=== PATIENT | female | born 1985 | race Caucasian/White ===

== ENCOUNTER 2020-06-09 12:14 | Outpatient (REF) | payer OTHER, MEDICAID, SELFPAY ==
[2020-06-09 12:45] LABS: MANUAL DIFF FLAG NO
[2020-06-09 13:03] LABS: Basophils Percent Auto 0.4 % (0-2); Eosinophils Absolute Auto 0.2 X10*3/uL (0.0-0.4); Eosinophils Percent Auto 2.4 % (0-4); Hematocrit 41.3 % (37-47); Hemoglobin 13.1 g/dl (12.0-16.0); Imm Gran Abs Auto 0.06 X10*3/uL (0.00-0.03); Imm Gran Pct Auto 0.8 % (0.0-0.4); Lymphocytes Percent Auto 25.3 % (20-40); Mean Corpuscular HGB Conc 31.7 g/dl (31.0-35.0); Mean Corpuscular Hemoglobin 29.1 pg (27.0-33.0); Mean Corpuscular Volume 91.8 fL (80-98); Mean Platelet Volume 10.7 fL (9.4-12.3); Monocytes Absolute Auto 0.6 X10*3/uL (0.1-1.2); Monocytes Percent Auto 7.6 % (2-11); Neutrophils Percent Auto 63.5 % (45-73); Platelet Count 315 X10*3/uL (160-400); Red Cell Distribution Width 13.5 % (11.0-16.0); White Blood Count 7.9 X10*3/uL (4.8-10.8)
[2020-06-09 13:05] LABS: Lithium 0.47 mmol/L (0.60-1.20)
[2020-06-09 13:12] LABS: Alanine Aminotransferase 29 U/L (0-31); Albumin Level 4.2 g/dL (3.5-5.0); Alkaline Phosphatase 77 U/L (39-117); Anion Gap 10 (12-20); Aspartate Amino Transferase 19 U/L (5-31); Bilirubin Direct < 0.2 mg/dL (0.0-0.5); Bilirubin Total 0.3 mg/dL (0.0-1.0); Blood Urea Nitrogen 13 mg/dL (9-16); Calcium 9.4 mg/dL (8.4-10.2); Carbon Dioxide 29 mmol/L (22-29); Chloride 104 mmol/L (96-108); Cholesterol 176 mg/dL; Estimated Glomerular Filt Rate > 60; Glucose Random 89 mg/dL (60-115); HDL Cholesterol 36 mg/dL; LDL Cholesterol Calculated 78 mg/dl; Potassium 4.4 mmol/l (3.3-5.1); Sodium 139 mmol/L (135-145); Total Protein 7.2 g/dL (6.5-8.0); Triglycerides 314 mg/dL
[2020-06-09 13:36] LABS: Thyroid Stimulating Hormone 1.14 uIU/mL (0.32-4.0)
== END 2020-06-09 12:15 | disposition home or self-care (01) ==
LOC: HO.LAB 12:14
PROVIDERS: PCP Internal Medicine; Visit Provider Nurse Practitioner Psychiatric/Mental Health
DX: F33.0 Major depressive disorder, recurrent, mild (principal); F43.10 Post-traumatic stress disorder, unspecified; Z79.899 Other long term (current) drug therapy
CPT/HCPCS: 36415; 80053; 80061; 80076; 80178; 82248; 84443; 85025

== ENCOUNTER 2020-06-27 11:31 | Outpatient (REF) | payer OTHER, MEDICAID, SELFPAY | END 2020-06-27 11:32 | disposition home or self-care (01) | LOC: HO.LAB 11:31 | PROVIDERS: Visit Provider Internal Medicine | DX: Z20.822 Contact with and (suspected) exposure to COVID-19 (principal) | CPT/HCPCS: 36415; C9803; U0003; U0005 ==

== ENCOUNTER → 2020-10-10 10:32 | Outpatient (BNVA) | payer OTHER, MEDICAID, SELFPAY | PROVIDERS: PCP Internal Medicine; Visit Provider Physician Assistant ==

== ENCOUNTER → 2020-11-06 08:11 | Outpatient (BNVA) | payer MEDICAID, SELFPAY | PROVIDERS: PCP Internal Medicine; Visit Provider Physician Assistant ==

== ENCOUNTER 2020-11-14 11:49 | Outpatient (REF) | payer MEDICAID, SELFPAY ==
[2020-11-14 13:34] LABS: MANUAL DIFF FLAG NO
[2020-11-14 13:38] LABS: Basophils Absolute Auto 0.1 X10*3/uL (0.0-0.2); Basophils Percent Auto 0.6 % (0-2); Eosinophils Absolute Auto 0.1 X10*3/uL (0.0-0.4); Eosinophils Percent Auto 1.6 % (0-4); Hematocrit 42.4 % (37-47); Hemoglobin 13.2 g/dl (12.0-16.0); Imm Gran Abs Auto 0.02 X10*3/uL (0.00-0.03); Imm Gran Pct Auto 0.2 % (0.0-0.4); Lymphocytes Absolute Auto 1.5 X10*3/uL (1.2-4.9); Lymphocytes Percent Auto 17.6 % (20-40); Mean Corpuscular HGB Conc 31.1 g/dl (31.0-35.0); Mean Corpuscular Hemoglobin 28.5 pg (27.0-33.0); Mean Corpuscular Volume 91.6 fL (80-98); Mean Platelet Volume 12.2 fL (9.4-12.3); Monocytes Absolute Auto 0.7 X10*3/uL (0.1-1.2); Monocytes Percent Auto 7.6 % (2-11); Neutrophils Absolute Auto 6.2 X10*3/uL (2.0-8.3); Neutrophils Percent Auto 72.4 % (45-73); Platelet Count 284 X10*3/uL (160-400); Red Blood Count 4.63 X10*6/uL (4.20-5.50); Red Cell Distribution Width 13.5 % (11.0-16.0); White Blood Count 8.5 X10*3/uL (4.8-10.8)
[2020-11-14 13:53] LABS: Estimated Average Glucose 97 mg/dL
[2020-11-14 14:08] LABS: Alanine Aminotransferase 14 U/L (0-31); Albumin Level 4.5 g/dL (3.5-5.0); Alkaline Phosphatase 59 U/L (39-117); Aspartate Amino Transferase 14 U/L (5-31); Bilirubin Total 0.4 mg/dL (0.0-1.0); Blood Urea Nitrogen 14 mg/dL (9-16); C Reactive Protein 0.71 mg/dL (< or = 0.50); Cholesterol 127 mg/dL; Estimated Glomerular Filt Rate > 60; Glucose Random 92 mg/dL (60-115); HDL Cholesterol 40 mg/dL; Iron 61 mcg/dL (30-160); LDL Cholesterol Calculated 58 mg/dl; Percent Iron Saturation 17 % (15-50); Total Iron Binding Capacity 367 mcg/dL (228-428); Total Protein 7.1 g/dL (6.5-8.0); Triglycerides 148 mg/dL; Unsaturated Iron Binding 306 ug/dL
[2020-11-14 14:21] LABS: Anion Gap 13 (12-20); Carbon Dioxide 26 mmol/L (22-29); Chloride 106 mmol/L (96-108); Potassium 4.2 mmol/L (3.3-5.1); Sodium 141 mmol/L (135-145)
[2020-11-14 14:31] LABS: TSH reflex Free T4 0.65 uIU/mL (0.32-4.0); Vitamin D 25-OH Total 44.8 ng/mL (>30)
[2020-11-14 14:38] LABS: Folate 5.8 ng/mL (> or = 4.0); Vitamin B12 354 pg/mL (200-900)
[2020-11-14 15:02] LABS: Ferritin 10 ng/mL (10-122)
[2020-11-17 18:46] LABS: Insulin Level Total 5.6 uIU/mL
[2020-11-18 03:12] LABS: Zinc 65 mcg/dL (60-130)
[2020-11-18 08:53] LABS: PTHI 60 pg/mL (14-64)
[2020-11-19 14:02] LABS: Vitamin A 35 mcg/dL (38-98)
[2020-11-20 12:26] LABS: Vitamin B1 6 nmol/L (8-30)
== END 2020-11-14 11:50 | disposition home or self-care (01) ==
LOC: HO.LAB 11:49
PROVIDERS: PCP Internal Medicine; Visit Provider Physician Assistant
DX: E66.9 Obesity, unspecified (principal)
CPT/HCPCS: 36415; 80053; 80061; 82306; 82607; 82728; 82746; 83036; 83525; 83540; 83970; 84425; 84443; 84590; 84630; 85025; 86140

== ENCOUNTER → 2021-01-12 08:01 | Outpatient (BNVA) | payer MEDICAID, SELFPAY | PROVIDERS: PCP Internal Medicine; Visit Provider Dietitian, Registered | DX: E66.9 Obesity, unspecified (principal) | CPT/HCPCS: 97802 ==

== ENCOUNTER → 2021-02-23 13:48 | Outpatient (BNVA) | payer MEDICAID, SELFPAY | PROVIDERS: PCP Internal Medicine; Visit Provider Physician Assistant | DX: E66.3 Overweight (principal) | CPT/HCPCS: 99212 ==

== ENCOUNTER → 2021-04-20 12:56 | Outpatient (BNVA) | payer MEDICAID, SELFPAY | PROVIDERS: PCP Internal Medicine; Visit Provider Physician Assistant | DX: E66.3 Overweight (principal); Z68.27 Body mass index [BMI] 27.0-27.9, adult | CPT/HCPCS: 99212 ==

== ENCOUNTER 2021-05-11 12:17 | Outpatient (REF) | payer MEDICAID, SELFPAY ==
[2021-05-11 16:11] LABS: COVID-19 Test Negative (Negative)
== END 2021-05-11 12:18 | disposition home or self-care (01) ==
LOC: HO.LAB 12:17
PROVIDERS: Visit Provider Internal Medicine
DX: Z20.822 Contact with and (suspected) exposure to COVID-19 (principal)
CPT/HCPCS: 36415; 87635; C9803

== ENCOUNTER → 2021-05-29 11:06 | Outpatient (BNVA) | payer MEDICAID, SELFPAY | PROVIDERS: PCP Internal Medicine; Visit Provider Physician Assistant | DX: E66.3 Overweight (principal); F31.9 Bipolar disorder, unspecified | CPT/HCPCS: 99212 ==

== ENCOUNTER → 2021-08-11 08:12 | Outpatient (BNVA) | payer OTHER, MEDICAID, SELFPAY | PROVIDERS: PCP Internal Medicine; Visit Provider Physician Assistant | DX: Z13.89 Encounter for screening for other disorder (principal) ==

== ENCOUNTER → 2021-09-01 08:18 | Outpatient (BNVA) | payer MEDICAID, SELFPAY | PROVIDERS: PCP Internal Medicine; Visit Provider Dietitian, Registered | DX: E66.3 Overweight (principal); Z68.27 Body mass index [BMI] 27.0-27.9, adult | CPT/HCPCS: 97803 ==

== ENCOUNTER 2021-09-07 08:45 | Outpatient (RCR) | payer OTHER, SELFPAY ==
[2021-08-12 13:11] VITALS: BMI 27.4
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
--- NOTE | 2021-08-13 15:46 | PC.NURSE ---
Case opened in treatment team.
--- NOTE | 2021-08-17 11:16 | HO.PHPPROGNO ---
Subjective Subjective Date of Service: 08/17/21 Reason For Visit: bipolar Guardianship: No Medical Problems Affecting Mental Status: No Interim History: Describes mood as I'm okay . Says continues with depressed mood, but feels the depression has lessened when compared to last week. Continues with vegetative symptoms, such as lack of ADLs, poor appetite, poor sleep. No reports of SI/HI, no safety concern. Content with current medication regimen. Medication Compliance: Yes Side effects from medications: No Attending Groups: Yes Review of Systems Acute medical concerns: No Medical Review of Systems: unchanged Review of Systems Review of Systems Yes all other systems are reviewed and are negative Constitutional: Reports no additional constitutional complaints Mental Status Exam Mental Status Exam Narrative: Well developed, well-nourished female, in NAD. No tics or tremors, no abnormal movements observed. Patient Appearance: Well Grooomed and Appropriate Patient Orientation: Person, Place, Time and Situation Level of Consciousness: Awake, Appropriate and Alert Patient Behavior: Appropriate, Cooperative and Good Eye Contact Mood Description: Appropriate Affect Description: Appropriate and Depressed (has improved somewhat) Patient Cognition Impaired: No Ability to Follow Directions: Excellent Speech Pattern: Clear, Appropriate and Coherent Memory Description: Intact Hallucinations: None Delusions: Not Present Thought Process: Intact Thought Content: positive for Intact Depressive Symptoms: Increased Anxiety, Changes in Appetite (decreased), Loss of Int. in Activity, Feelings of Worthlessness, Feelings of Guilt, Increased Fatigue and Low Self Esteem Judgement: Fair Diagnostics Vital Signs (24Hr): BMI result Body Mass Index 27.4 Assessment & Plan Assessment & Plan (1) Bipolar 2 disorder, major depressive episode: Status: Acute Code(s): F31.81 - Bipolar II disorder Assessment and Plan: Describes mood as I'm okay . Says continues with depressed mood, but feels the depression has lessened when compared to last week. Continues with vegetative symptoms, such as lack of ADLs, poor appetite, poor sleep. No reports of SI/HI, no safety concern. We had discussed a goal last week, which was walking. She states that she has been able to take a walk every day, which she feels is helping improve her mood. Discussed a new goal this week. Patient will attempt to get dressed every day by 08:45, prior to starting PHP. Currently she is getting dressed at lunch time. If she is unable to find motivation to do this by 845, she will do this during that a.m. break. Patient reports she is satisfied with current medication regimen, does not want any med changes at this time. She is finding the structure and groups of PHP to be helpful. (2) Chronic post-traumatic stress disorder (PTSD): Status: Acute Code(s): F43.12 - Post-traumatic stress disorder, chronic Plan 1. Continue with current [facility] plan of care. 2. Patient has set a self-care goal to to get dressed every morning prior to PHP. 3. Continue with current medication regimen as prescribed by outpatient provider. 4. Follow-up as per protocol. Patient educated on: diagnosis, medication risk/benefits and therapeutic strategies Informed Consent: understands Reason for contiued partial hosp. stay Substantial Risk for: harm to self, inability to function and med/psych decompensation Certification I certify that partial hospital treatment is medically necessary due to the symptoms and problems resulting from the patient's mental illness and the failure to treat the patient at the partial hospital level of care would likely result in the patient requiring inpatient psychiatric care which could not be prevented at a less intensive level of care. I spent minutes with the patient and/or on the patient floor today, greater than?50% of which was spent counseling/coordinating care. Discharge Plan Discharge Attending provider: Sarbjit Barrios Medications: No Action lithium carbonate 150 mg Capsule 150 mg PO BEDTIME 0RF Rx Instructions: Take with 450 mg tab at HS for a total daily dose of 1050 mg. melatonin 3 mg Tablet 3 - 9 mg PO BEDTIME 0RF Rx Instructions: Take 1-3 tabs at Bedtime. Latuda 120 mg Tablet 120 mg PO DAILY 0RF Rx Instructions: must administer with food (at least 350 calories) cholecalciferol (vitamin D3) 50 mcg (2,000 unit) tablet 50 mcg PO DAILY 0RF loratadine 10 mg tablet 10 mg PO DAILY 0RF omeprazole 20 mg capsule,delayed release(DR/EC) 40 mg PO DAILY 0RF Label Comments: Patient stated she missed a few days as she ran out. Stated the pharmacy told her it is ready for p/u today. lithium carbonate 450 mg tablet extended release 450 mg PO BID 0RF lorazepam 0.5 mg tablet 0.5 mg PO DAILY PRN (Reason: Anxiety) 0RF Label Comments: Patient stated last dose few days ago. sumatriptan succinate 50 mg tablet 50 mg PO DAILY PRN (Reason: Migraine Headache) 0RF Rx Instructions: Last filled 07/14/21 for 9 tabs. clonidine HCl 0.1 mg tablet 0.1 mg PO BID PRN (Reason: Anxiety) 0RF Label Comments: Patient takes 2 tabs at HS. Rx Instructions: 1/2 to 1 tab BID Stand Alone Forms: Patient Portal Discharge page Telehealth Telehealth Location of provider rendering services: practice address Location of patient: address on file Patient Identification confirmed using: Name, : Yes Telehealth method: video Patient verbally consented to treatment: Yes Patient verbally consented to billing insurance company: Yes Patient informed of any privacy concerns related to visit: Yes Time spent with patient (mins): 15
--- NOTE | 2021-08-24 14:19 | P.PNPSP_ITS ---
Subjective Subjective Date of Service: 08/24/21 Reason For Visit: bipolar Guardianship: No Medical Problems Affecting Mental Status: No Interim History: Reports ?I am okay ?. Continues with dysphoric mood, believes depressed escobar is worsening. Indecisive regarding any medication changes this week. No SI, no safety concerns. Medication Compliance: Yes Side effects from medications: No Attending Groups: Yes Review of Systems Acute medical concerns: No Medical Review of Systems: unchanged Review of Systems Review of Systems Yes all other systems are reviewed and are negative Constitutional: Reports no additional constitutional complaints Mental Status Exam Mental Status Exam Narrative: Well developed, well-nourished female, in NAD. No tics or tremors, no abnormal movements observed. Denies SI. Tearful during encounter. Patient Appearance: Well Grooomed and Appropriate Patient Orientation: Person, Place, Time and Situation Level of Consciousness: Awake, Appropriate and Alert Patient Behavior: Appropriate, Cooperative, Good Eye Contact and Crying (Tearful at times during encounter.) Mood Description: Depressed Affect Description: Depressed Patient Cognition Impaired: No Ability to Follow Directions: Excellent Speech Pattern: Clear, Appropriate and Coherent Memory Description: Intact Hallucinations: None Delusions: Not Present Thought Process: Intact Thought Content: positive for Intact Depressive Symptoms: Increased Anxiety, Loss of Int. in Activity, Feelings of Worthlessness, Feelings of Guilt, Unhappiness, Increased Fatigue and Low Self Esteem Judgement: Fair Diagnostics Vital Signs (24Hr): BMI result Body Mass Index 27.4 Assessment & Plan Assessment & Plan (1) Bipolar 2 disorder, major depressive episode: Status: Acute Code(s): F31.81 - Bipolar II disorder Assessment and Plan: Patient reports dysphoric mood, states that she believes her depression is worsening. She relates this to situational circumstances, including having her children over the weekend, and then not having them today. Became tearful, explains that she has a friend that is at a local hospital, and she is unable to see him. He also is going away to 100 day treatment program and she will not have as much time with him. Discussed medications, such as increasing lithium or adding low-dose Wellbutrin. Discussed risks and benefits, including possible adverse effects, and alternatives. She reports that when she did have a higher dose of lithium she had an adverse reaction, and does not wish to increase it. Although she is currently on to mood stabilizers at this time, she is hesitant to adding any other medications such as Wellbutrin to help with depressive symptoms, as she is fearful regarding potential hypomanic/manic episode. She would like to hold off on changes or adding any medications at this time. Denies SI, either active or passive. No safety concerns. She continues with some vegetative symptoms of her depression. She has been pushing herself to go outside every day and take a walk. She has been finding this somewhat helpful. (2) Chronic post-traumatic stress disorder (PTSD): Status: Acute Code(s): F43.12 - Post-traumatic stress disorder, chronic Plan 1. Continue with current [facility] plan of care. 2. Continue with current medication regimen as prescribed by her outpatient provider. 3. Follow-up as per protocol. Patient educated on: diagnosis, medication risk/benefits and therapeutic strategies Informed Consent: understands Reason for contiued partial hosp. stay Substantial Risk for: inability to function and med/psych decompensation Certification I certify that partial hospital treatment is medically necessary due to the symptoms and problems resulting from the patient's mental illness and the failure to treat the patient at the partial hospital level of care would likely result in the patient requiring inpatient psychiatric care which could not be prevented at a less intensive level of care. I spent minutes with the patient and/or on the patient floor today, greater than?50% of which was spent counseling/coordinating care. Discharge Plan Discharge Attending provider: Sarbjit Barrios Medications: No Action lithium carbonate 150 mg Capsule 150 mg PO BEDTIME 0RF Rx Instructions: Take with 450 mg tab at HS for a total daily dose of 1050 mg. melatonin 3 mg Tablet 3 - 9 mg PO BEDTIME 0RF Rx Instructions: Take 1-3 tabs at Bedtime. Latuda 120 mg Tablet 120 mg PO DAILY 0RF Rx Instructions: must administer with food (at least 350 calories) cholecalciferol (vitamin D3) 50 mcg (2,000 unit) tablet 50 mcg PO DAILY 0RF loratadine 10 mg tablet 10 mg PO DAILY 0RF omeprazole 20 mg capsule,delayed release(DR/EC) 40 mg PO DAILY 0RF Label Comments: Patient stated she missed a few days as she ran out. Stated the pharmacy told her it is ready for p/u today. lithium carbonate 450 mg tablet extended release 450 mg PO BID 0RF lorazepam 0.5 mg tablet 0.5 mg PO DAILY PRN (Reason: Anxiety) 0RF Label Comments: Patient stated last dose few days ago. sumatriptan succinate 50 mg tablet 50 mg PO DAILY PRN (Reason: Migraine Headache) 0RF Rx Instructions: Last filled 07/14/21 for 9 tabs. clonidine HCl 0.1 mg tablet 0.1 mg PO BID PRN (Reason: Anxiety) 0RF Label Comments: Patient takes 2 tabs at HS. Rx Instructions: 1/2 to 1 tab BID Stand Alone Forms: Patient Portal Discharge page Telehealth Telehealth Location of provider rendering services: practice address Location of patient: address on file Patient Identification confirmed using: Name, : Yes Telehealth method: video Patient verbally consented to treatment: Yes Patient verbally consented to billing insurance company: Yes Patient informed of any privacy concerns related to visit: Yes Minutes spent on Phone/Video with Pt.: 20
--- NOTE | 2021-08-31 09:17 | PC.NURSE ---
I left message for the client to call re absence from community meeting
--- NOTE | 2021-08-31 09:26 | PC.NURSE ---
The client called and is going to be out because she is taking a friend to a treatment facility in the [facility]. She states that she will be in tomorrow.
--- NOTE | 2021-09-02 13:15 | HO.PHPPROGNO ---
Subjective Subjective Date of Service: 09/02/21 Reason For Visit: bipolar Guardianship: No Medical Problems Affecting Mental Status: No Interim History: Described mood as ?anxious ?. States anxiety has been getting worse. Continues with dysphoric/mood and affect. Reports had a panic attack driving home from [place] yesterday. Denies any thought of harm to self or others, no SI, no safety concern. Does not want any medication changes at this time. Medication Compliance: Yes Side effects from medications: No Attending Groups: Yes Review of Systems Acute medical concerns: No Medical Review of Systems: unchanged Review of Systems Review of Systems Yes all other systems are reviewed and are negative Constitutional: Reports no additional constitutional complaints Mental Status Exam Mental Status Exam Narrative: NAD. No tics or tremors, no abnormal movements observed. Denies SI. Patient Appearance: Well Grooomed and Appropriate Patient Orientation: Person, Place, Time and Situation Level of Consciousness: Awake, Appropriate and Alert Patient Behavior: Appropriate, Cooperative and Good Eye Contact Mood Description: Anxious Affect Description: Depressed and Anxious Patient Cognition Impaired: No Ability to Follow Directions: Good Speech Pattern: Clear, Appropriate and Coherent Memory Description: Intact Hallucinations: None Delusions: Not Present Thought Process: Intact Thought Content: positive for Intact Depressive Symptoms: Increased Anxiety, Loss of Int. in Activity, Feelings of Worthlessness, Feelings of Guilt, Unhappiness, Increased Fatigue and Low Self Esteem Judgement: Fair Diagnostics Vital Signs (24Hr): BMI result Body Mass Index 27.4 Assessment & Plan Assessment & Plan (1) Bipolar 2 disorder, major depressive episode: Status: Acute Code(s): F31.81 - Bipolar II disorder Assessment and Plan: Described mood as ?anxious ?. States anxiety has been getting worse. Reports had a panic attack driving home from [place] yesterday. Denies any thought of harm to self or others, no SI, no safety concern. Discussed carrying 1 of her p.r.n. Ativan is a with her, as well as p.r.n. clonidine. States that she could have these with her, and when she feels she is beginning to have a panic attack she could take the clonidine. And if no effect, could then take the Ativan. Also discussed utilizing techniques such as deep breathing, other skills in order to help when feeling extreme anxiety/panic. She states that she did discuss the fact that she has been having more depression with her outpatient provider, and they both decided that she will wait until she is completed PHP, and then explore any possibility of adding any medications with her outpatient provider. She is fearful of experiencing a manic/hypomanic episode if adding anything for depression. Discuss this plan, and it was agreed that this sounds like a solid, well thought out plan going forward. She does not wish to have any medication changes at this time, reports that she feels although she is having some dysphoric mood with increased anxiety, that she feels safe. (2) Chronic post-traumatic stress disorder (PTSD): Status: Acute Code(s): F43.12 - Post-traumatic stress disorder, chronic Plan 1. Continue with current PHP plan of care. 2. Continue with current medications as prescribed by outpatient provider 3. Follow-up as per protocol. Patient educated on: medication risk/benefits and therapeutic strategies Informed Consent: understands Reason for contiued partial hosp. stay Substantial Risk for: harm to self, inability to function and med/psych decompensation Certification I certify that partial hospital treatment is medically necessary due to the symptoms and problems resulting from the patient's mental illness and the failure to treat the patient at the partial hospital level of care would likely result in the patient requiring inpatient psychiatric care which could not be prevented at a less intensive level of care. I spent minutes with the patient and/or on the patient floor today, greater than?50% of which was spent counseling/coordinating care. Discharge Plan Discharge Attending provider: Sarbjit Barrios Medications: No Action lithium carbonate 150 mg Capsule 150 mg PO BEDTIME 0RF Rx Instructions: Take with 450 mg tab at HS for a total daily dose of 1050 mg. melatonin 3 mg Tablet 3 - 9 mg PO BEDTIME 0RF Rx Instructions: Take 1-3 tabs at Bedtime. Latuda 120 mg Tablet 120 mg PO DAILY 0RF Rx Instructions: must administer with food (at least 350 calories) cholecalciferol (vitamin D3) 50 mcg (2,000 unit) tablet 50 mcg PO DAILY 0RF loratadine 10 mg tablet 10 mg PO DAILY 0RF omeprazole 20 mg capsule,delayed release(DR/EC) 40 mg PO DAILY 0RF Label Comments: Patient stated she missed a few days as she ran out. Stated the pharmacy told her it is ready for p/u today. lithium carbonate 450 mg tablet extended release 450 mg PO BID 0RF lorazepam 0.5 mg tablet 0.5 mg PO DAILY PRN (Reason: Anxiety) 0RF Label Comments: Patient stated last dose few days ago. sumatriptan succinate 50 mg tablet 50 mg PO DAILY PRN (Reason: Migraine Headache) 0RF Rx Instructions: Last filled 07/14/21 for 9 tabs. clonidine HCl 0.1 mg tablet 0.1 mg PO BID PRN (Reason: Anxiety) 0RF Label Comments: Patient takes 2 tabs at HS. Rx Instructions: 1/2 to 1 tab BID Stand Alone Forms: Patient Portal Discharge page Telehealth Telehealth Location of provider rendering services: practice address Location of patient: address on file Patient Identification confirmed using: Name, : Yes Telehealth method: video Patient verbally consented to treatment: Yes Patient verbally consented to billing insurance company: Yes Patient informed of any privacy concerns related to visit: Yes Minutes spent on Phone/Video with Pt.: 15
--- NOTE | 2021-09-03 08:44 | PC.NURSE ---
Pt called and I spoke with her. She said she has a dermatology appointment tomorrow on her scheduled last day, at 9:50, and she's been waiting for 6 months for it, so she doesn't want to reschedule. We planned on discharging her today instead, as she has her kids all next week and is unable to attend.
--- NOTE | 2021-09-03 14:47 | PC.NURSE ---
Patient discharged from the program today. Patient denied SI or thoughts to harm self. Patient reports she feels safe. Reviewed medications with patient. No medication changes made while at [facility]. Patient reports she is taking medications as prescribed.
--- NOTE | 2021-09-03 15:51 | PC.NURSE ---
I called and LM for pt's therapist, Gina Carter at [facility]. i informed her about pt's successful discharge from [facility] today, and about her clinical presentation.
== END 2021-09-07 23:59 | disposition home or self-care (01) ==
LOC: HO.PHPA 08:45
PROVIDERS: Visit Provider Psychiatry & Neurology Psychiatry
DX: F31.81 Bipolar II disorder (principal); F43.12 Post-traumatic stress disorder, chronic; Z79.899 Other long term (current) drug therapy
CPT/HCPCS: 90791; 90853

== ENCOUNTER → 2021-10-08 08:18 | Outpatient (BNVA) | payer OTHER, SELFPAY | PROVIDERS: PCP Internal Medicine; Visit Provider Physician Assistant | DX: E66.3 Overweight (principal); M62.08 Separation of muscle (nontraumatic), other site; F31.9 Bipolar disorder, unspecified ==

== ENCOUNTER 2021-11-06 10:00 | Outpatient (RCR) | payer OTHER, SELFPAY ==
[2021-10-06 12:32] VITALS: BMI 27.4
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
--- NOTE | 2021-10-08 14:59 | PC.NURSE ---
I called and spoke to pt. Reviewed treatment plan and discussed aftercare needs.
--- NOTE | 2021-10-08 16:43 | PC.NURSE ---
Case opened in treatment team.
--- NOTE | 2021-10-13 09:43 | PC.NURSE ---
I called pt after she did not show for community meeting. I woke her up, and she was very apologetic stating she overslept. She asked if she can join group, and I said no per our program guidelines. She said she's fine with this, is safe, and feels good overall after starting Wellbutrin. She will plan to be in groups tomorrow.
--- NOTE | 2021-10-13 13:57 | PC.NURSE ---
Tracy spoke to Kim this morning as Kim did not show up to the community morning meeting. Patient told Tracy she overslept as she did not sleep well last night and will be in the program tomorrow.
--- NOTE | 2021-10-14 09:46 | PC.NURSE ---
Pt called stating her daughter has a 10am intake today that is expected to be 1.5 hours long. She asked if she can step out of group for this and I said no per our program guidelines, as she would miss half of the process group. She said okay and said she is still feeling good overall. She reported being out of Wellbutrin after today, and I informed the med provider, Selena, who will said she'd send a script now. I called pt back and informed her of this. She will plan to be in groups tomorrow.
--- NOTE | 2021-10-15 13:07 | P.PNPSP_ITS ---
Subjective Subjective Date of Service: 10/15/21 Reason For Visit: bipolar Guardianship: No Medical Problems Affecting Mental Status: No Interim History: Describes mood as ?I am good?. States continues with some depression, but ?not as low as I was, I feel a little bit better ?. No SI/HI, no safety concern. Taking Wellbutrin, finding it helpful. Some difficulty sleeping. Medication Compliance: Yes Side effects from medications: Yes (concerned sleep issue may be due to wellbutrin.) Attending Groups: Yes Review of Systems Acute medical concerns: No Medical Review of Systems: unchanged Review of Systems Review of Systems Yes all other systems are reviewed and are negative Constitutional: Reports no additional constitutional complaints Mental Status Exam Mental Status Exam Narrative: In NAD. Fully attentive during encounter. No SI, no safety concern. More engaged. Patient Appearance: Well Grooomed and Appropriate Patient Orientation: Person, Place, Time and Situation Level of Consciousness: Appropriate Patient Behavior: Appropriate, Cooperative and Good Eye Contact Mood Description: Depressed (Reports still depressed, but feels a little bit better .) Affect Description: Appropriate and Depressed Patient Cognition Impaired: No Ability to Follow Directions: Good Speech Pattern: Clear, Appropriate and Coherent Memory Description: Intact Hallucinations: None Delusions: Not Present Thought Process: Intact Thought Content: positive for Intact Depressive Symptoms: Increased Anxiety, Loss of Int. in Activity, Isolating-Friends/Family, Feelings of Guilt and Increased Fatigue Judgement: Fair Diagnostics Vital Signs (24Hr): BMI result Body Mass Index 27.4 Assessment & Plan Assessment & Plan (1) Bipolar 2 disorder, major depressive episode: Status: Acute Code(s): F31.81 - Bipolar II disorder Assessment and Plan: Reports the Wellbutrin appears to be helping lift her mood. Describes having more energy, reports feeling dysphoric but improved. Denies SI. States that she has had some difficulty sleeping over the past week. In review of her medication regimen, she has been taking the Wellbutrin at 1 0:00. She wakes up at approximately 07:00. Discussed having medication near coffee pot, and taking it right earlier, when she gets up, so as to help improve sleep. She was agreeable to this. She is satisfied with current dose of 100 mg daily. Patient also has p.r.n. melatonin dose, has 6 mg at bedtime available. She has also been instructed by her outpatient provider that if she needs to take a 3rd pill, total dose of 9 mg for sleep, that she is able to do so. She states that she will 1st try changing the timing of the Wellbutrin dose to earlier in the morning. If she continues to have sleep problems she will then add the 3mg of melatonin for total nighttime dose of 9 mg. Finding groups helpful. Has her children this weekend, looking forward to seeing them. (2) Chronic post-traumatic stress disorder (PTSD): Status: Acute Code(s): F43.12 - Post-traumatic stress disorder, chronic Plan 1. Continue with current [facility] plan of care. 2. Refill of Wellbutrin script was sent yesterday. 3. Continue with all other medications as prescribed by outpatient provider. 4. Follow-up as per protocol. Patient educated on: diagnosis, medication risk/benefits and therapeutic strategies Informed Consent: understands Reason for contiued partial hosp. stay Substantial Risk for: harm to self, inability to function and med/psych decompensation Certification I certify that partial hospital treatment is medically necessary due to the symptoms and problems resulting from the patient's mental illness and the failure to treat the patient at the partial hospital level of care would likely result in the patient requiring inpatient psychiatric care which could not be prevented at a less intensive level of care. I spent minutes with the patient and/or on the patient floor today, greater than?50% of which was spent counseling/coordinating care. Discharge Plan Discharge Attending provider: Sarbjit Barrios Medications: New bupropion HCl [Wellbutrin SR] 100 mg tablet sustained-release 12 hr 100 mg PO DAILY 7 Days Qty: 7 0RF No Action lithium carbonate 150 mg Capsule 150 mg PO BEDTIME 0RF Rx Instructions: Take with 450 mg tab at HS for a total daily dose of 1050 mg. melatonin 3 mg Tablet 6 mg PO BEDTIME 0RF Rx Instructions: Take 1-3 tabs at Bedtime. Latuda 120 mg Tablet 120 mg PO DAILY 0RF Rx Instructions: must administer with food (at least 350 calories) cholecalciferol (vitamin D3) 50 mcg (2,000 unit) tablet 50 mcg PO DAILY 0RF loratadine 10 mg tablet 10 mg PO DAILY 0RF omeprazole 20 mg capsule,delayed release(DR/EC) 40 mg PO DAILY 0RF Label Comments: Patient stated she missed a few days as she ran out. Stated the pharmacy told her it is ready for p/u today. lithium carbonate 450 mg tablet extended release 450 mg PO BID 0RF lorazepam 0.5 mg tablet 0.5 mg PO DAILY PRN (Reason: Anxiety) 0RF Label Comments: Patient stated last dose few days ago. sumatriptan succinate 50 mg tablet 50 mg PO DAILY PRN (Reason: Migraine Headache) 0RF Rx Instructions: Last filled 07/14/21 for 9 tabs. clonidine HCl 0.1 mg tablet 0.2 mg PO BEDTIME 0RF Label Comments: Patient takes 2 tabs at HS. Rx Instructions: 1/2 to 1 tab BID Telehealth Telehealth Location of provider rendering services: practice address Location of patient: address on file Patient Identification confirmed using: Name, : Yes Telehealth method: video Patient verbally consented to treatment: Yes Patient verbally consented to billing insurance company: Yes Patient informed of any privacy concerns related to visit: Yes Minutes spent on Phone/Video with Pt.: 15
--- NOTE | 2021-10-22 16:24 | HO.PHPPROGNO ---
Subjective Subjective Date of Service: 10/22/21 Reason For Visit: bipolar Guardianship: No Medical Problems Affecting Mental Status: No Interim History: Describes mood as I'm okay, still depressed. My mood has been low . Has had vivid visual images of suicide, states that she has no desire to act on them at all. Stop taking Wellbutrin, states that it made her feel irritable. Medication Compliance: Yes Side effects from medications: Yes (States that Wellbutrin made her feel irritable.) Attending Groups: Yes Review of Systems Acute medical concerns: No Medical Review of Systems: unchanged Review of Systems Review of Systems Yes all other systems are reviewed and are negative Constitutional: Reports no additional constitutional complaints Mental Status Exam Mental Status Exam Narrative: NAD. Depressed mood, flat affect. Patient Appearance: Well Grooomed and Appropriate Patient Orientation: Person, Place, Time and Situation Level of Consciousness: Appropriate Patient Behavior: Appropriate, Cooperative and Good Eye Contact Mood Description: Depressed Affect Description: Depressed, Blunted and Flat Patient Cognition Impaired: No Ability to Follow Directions: Good Speech Pattern: Clear, Appropriate and Coherent Memory Description: Intact Hallucinations: None Delusions: Not Present Thought Process: Intact Thought Content: positive for Intact Depressive Symptoms: Increased Anxiety, Loss of Int. in Activity, Isolating-Friends/Family, Feelings of Guilt, Increased Fatigue and Thoughts of /Suicide (Describes vivid visual images, states has no plan or intent.) Judgement: Fair Diagnostics Vital Signs (24Hr): BMI result Body Mass Index 27.4 Assessment & Plan Assessment & Plan (1) Bipolar 2 disorder, major depressive episode: Status: Acute Code(s): F31.81 - Bipolar II disorder Assessment and Plan: Patient reports continued depressed mood. Found Wellbutrin to causes irritability. Would like something for depression. We discussed this in detail, as she had experiences with antidepressants in the past that caused her to have manic episodes. Also discussed recent irritability when taking Wellbutrin x2 weeks. She currently is receiving lithium, total daily dose 1050mg. Discussed possibility of adding an antidepressant now that she is on a stable dose of lithium. Encourage patient to discuss with outpatient provider regarding adding any antidepressant at this time, as there is a risk of inducing hypomania/pete. She was agreeable to this, and stated that she would think about this, possibly discussed with outpatient provider before starting any new medications. Discussed her vivid images of completing a suicide. She states that they are fleeting, and do not last long. We discussed benefits of lithium in protective factor from suicide, as well as Latuda for intrusive thoughts. She states that she feels safe at this time, with no intent or plan. She stated she would notify us and call crisis if this changed in any way. Finding groups somewhat helpful. (2) Chronic post-traumatic stress disorder (PTSD): Status: Acute Code(s): F43.12 - Post-traumatic stress disorder, chronic Assessment and Plan: Continues with some symptoms of PTSD, more focused on symptoms of depression at this time. Plan 1. Continue with current [facility] plan of care. 2. Discontinue Wellbutrin. 3. Follow-up as per protocol. Patient educated on: diagnosis, medication risk/benefits and therapeutic strategies Informed Consent: understands Reason for contiued partial hosp. stay Substantial Risk for: harm to self, inability to function, rapid decompensation and med/psych decompensation Certification I certify that partial hospital treatment is medically necessary due to the symptoms and problems resulting from the patient's mental illness and the failure to treat the patient at the partial hospital level of care would likely result in the patient requiring inpatient psychiatric care which could not be prevented at a less intensive level of care. I spent minutes with the patient and/or on the patient floor today, greater than?50% of which was spent counseling/coordinating care. Discharge Plan Discharge Attending provider: Sarbjit Barrios Medications: No Action lithium carbonate 150 mg Capsule 150 mg PO BEDTIME 0RF Rx Instructions: Take with 450 mg tab at HS for a total daily dose of 1050 mg. melatonin 3 mg Tablet 6 mg PO BEDTIME 0RF Rx Instructions: Take 1-3 tabs at Bedtime. Latuda 120 mg Tablet 120 mg PO DAILY 0RF Rx Instructions: must administer with food (at least 350 calories) cholecalciferol (vitamin D3) 50 mcg (2,000 unit) tablet 50 mcg PO DAILY 0RF loratadine 10 mg tablet 10 mg PO DAILY 0RF omeprazole 20 mg capsule,delayed release(DR/EC) 40 mg PO DAILY 0RF Label Comments: Patient stated she missed a few days as she ran out. Stated the pharmacy told her it is ready for p/u today. lithium carbonate 450 mg tablet extended release 450 mg PO BID 0RF lorazepam 0.5 mg tablet 0.5 mg PO DAILY PRN (Reason: Anxiety) 0RF Label Comments: Patient stated last dose few days ago. sumatriptan succinate 50 mg tablet 50 mg PO DAILY PRN (Reason: Migraine Headache) 0RF Rx Instructions: Last filled 07/14/21 for 9 tabs. clonidine HCl 0.1 mg tablet 0.2 mg PO BEDTIME 0RF Label Comments: Patient takes 2 tabs at HS. Rx Instructions: 1/2 to 1 tab BID Telehealth Telehealth Location of provider rendering services: practice address Location of patient: address on file Patient Identification confirmed using: Name, : Yes Telehealth method: video Patient verbally consented to treatment: Yes Patient verbally consented to billing insurance company: Yes Patient informed of any privacy concerns related to visit: Yes Minutes spent on Phone/Video with Pt.: 15
--- NOTE | 2021-10-26 14:23 | HO.PHPPROGNO ---
Subjective Subjective Date of Service: 10/26/21 Reason For Visit: bipolar Medical Problems Affecting Mental Status: No Interim History: States ?I am okay, still depressed ?. No SI, states the vivid images she was experiencing last week have ?gone away so far ?. Requesting medication change, would like to resume Celexa, took it for 7 years. Medication Compliance: Yes Side effects from medications: No Attending Groups: Yes Review of Systems Acute medical concerns: No Medical Review of Systems: unchanged Mental Status Exam Mental Status Exam Narrative: NAD. Depressed mood, flat affect. Patient Appearance: Well Grooomed and Appropriate Patient Orientation: Person, Place, Time and Situation Level of Consciousness: Appropriate Patient Behavior: Appropriate, Cooperative and Good Eye Contact Mood Description: Depressed Affect Description: Depressed and Flat Patient Cognition Impaired: No Ability to Follow Directions: Good Speech Pattern: Clear, Appropriate and Coherent Memory Description: Intact Hallucinations: None Delusions: Not Present Thought Process: Intact Thought Content: positive for Intact Depressive Symptoms: Increased Anxiety, Loss of Int. in Activity and Increased Fatigue Judgement: Fair Diagnostics Vital Signs (24Hr): BMI result Body Mass Index 27.4 Assessment & Plan Assessment & Plan (1) Bipolar 2 disorder, major depressive episode: Status: Acute Code(s): F31.81 - Bipolar II disorder Assessment and Plan: Reports overall continues with depression, denies any thought of SI/HI, no safety concern. States that continues with depression, believes that she needs medication. No side effects or issues stopping Wellbutrin last week. Discussed Celexa. Patient reports she 1st started taking in 2012 when diagnosed with depression. She stated that it did not cause any manic episodes. Would like to try it again. Discussed adding Celexa 20 mg, 7 day supply. Reviewed symptoms of pete/hypomania, and patient was advised to stop if she began to experience any of these symptoms. She stated that she understood. She reports that she used to take 40 mg. We discussed medication further, and she was agreeable to starting at 20 mg. Patient reports she has an appointment on September 28 with her outpatient psychiatric provider. (2) Chronic post-traumatic stress disorder (PTSD): Status: Acute Code(s): F43.12 - Post-traumatic stress disorder, chronic Assessment and Plan: Continues with chronic PTSD. Denies any overt symptoms at this time. Plan 1. Start Celexa 20 mg daily. 2. Continue with current [facility] plan of care. 3. Follow-up as per protocol. Patient educated on: diagnosis, medication risk/benefits and therapeutic strategies Informed Consent: understands Reason for contiued partial hosp. stay Substantial Risk for: inability to function, rapid decompensation and med/psych decompensation Certification I certify that partial hospital treatment is medically necessary due to the symptoms and problems resulting from the patient's mental illness and the failure to treat the patient at the partial hospital level of care would likely result in the patient requiring inpatient psychiatric care which could not be prevented at a less intensive level of care. I spent minutes with the patient and/or on the patient floor today, greater than?50% of which was spent counseling/coordinating care. Discharge Plan Discharge Attending provider: Sarbjit Barrios Medications: New citalopram 20 mg tablet 20 mg PO DAILY 7 Days Qty: 7 0RF No Action lithium carbonate 150 mg Capsule 150 mg PO BEDTIME 0RF Rx Instructions: Take with 450 mg tab at HS for a total daily dose of 1050 mg. melatonin 3 mg Tablet 6 mg PO BEDTIME 0RF Rx Instructions: Take 1-3 tabs at Bedtime. Latuda 120 mg Tablet 120 mg PO DAILY 0RF Rx Instructions: must administer with food (at least 350 calories) cholecalciferol (vitamin D3) 50 mcg (2,000 unit) tablet 50 mcg PO DAILY 0RF loratadine 10 mg tablet 10 mg PO DAILY 0RF omeprazole 20 mg capsule,delayed release(DR/EC) 40 mg PO DAILY 0RF Label Comments: Patient stated she missed a few days as she ran out. Stated the pharmacy told her it is ready for p/u today. lithium carbonate 450 mg tablet extended release 450 mg PO BID 0RF lorazepam 0.5 mg tablet 0.5 mg PO DAILY PRN (Reason: Anxiety) 0RF Label Comments: Patient stated last dose few days ago. sumatriptan succinate 50 mg tablet 50 mg PO DAILY PRN (Reason: Migraine Headache) 0RF Rx Instructions: Last filled 07/14/21 for 9 tabs. clonidine HCl 0.1 mg tablet 0.2 mg PO BEDTIME 0RF Label Comments: Patient takes 2 tabs at HS. Rx Instructions: 1/2 to 1 tab BID Telehealth Telehealth Location of provider rendering services: practice address Location of patient: address on file Patient Identification confirmed using: Name, : Yes Telehealth method: video Patient verbally consented to treatment: Yes Patient verbally consented to billing insurance company: Yes Patient informed of any privacy concerns related to visit: Yes Minutes spent on Phone/Video with Pt.: 15
--- NOTE | 2021-11-04 13:04 | HO.PHPPROGNO ---
Subjective Subjective Date of Service: 11/04/21 Reason For Visit: bipolar Medical Problems Affecting Mental Status: No Interim History: Describes mood as ?I am okay ?. No side effects reported from citalopram, no hypomanic/manic symptoms. No SI/HI, no safety concern. Reports lowered appetite recently. Medication Compliance: Yes Side effects from medications: No Attending Groups: Yes Review of Systems Acute medical concerns: No Medical Review of Systems: unchanged Review of Systems Review of Systems Yes all other systems are reviewed and are negative Constitutional: Reports no additional constitutional complaints Mental Status Exam Mental Status Exam Narrative: NAD. Mood: I'm okay . Patient Appearance: Well Grooomed and Appropriate Patient Orientation: Person, Place, Time and Situation Level of Consciousness: Appropriate Patient Behavior: Appropriate, Cooperative and Good Eye Contact Mood Description: Depressed Affect Description: Depressed and Flat Patient Cognition Impaired: No Ability to Follow Directions: Good Speech Pattern: Clear, Appropriate and Coherent Memory Description: Intact Hallucinations: None Delusions: Not Present Thought Process: Intact Thought Content: positive for Intact Depressive Symptoms: Changes in Appetite (reduced), Loss of Int. in Activity and Increased Fatigue Judgement: Fair Diagnostics Vital Signs (24Hr): BMI result Body Mass Index 27.4 Assessment & Plan Assessment & Plan (1) Bipolar 2 disorder, major depressive episode: Status: Acute Code(s): F31.81 - Bipolar II disorder Assessment and Plan: Reports overall continues with some dysphoric mood, states that she is not aware of any changes since starting citalopram 1 week ago. We reviewed the medication, and expected amount of time before she will notice improvement in depression symptoms. We also discussed possibility of activation, she states that she has had no symptoms of pete or hypomania since starting the citalopram. She does report depressed appetite, but she believes this is not related to any medications but more a symptom of her overall depression. No SI/HI, no safety concerns at this time. (2) Chronic post-traumatic stress disorder (PTSD): Status: Acute Code(s): F43.12 - Post-traumatic stress disorder, chronic Assessment and Plan: No overt symptoms of PTSD observed, and none reported at this time. Plan 1. Continue with current [facility] plan of care. 2. Continue with current medication regimen. 3. Follow-up as per protocol. Patient educated on: diagnosis, medication risk/benefits and therapeutic strategies Informed Consent: understands Reason for contiued partial hosp. stay Substantial Risk for: inability to function, rapid decompensation and med/psych decompensation Certification I certify that partial hospital treatment is medically necessary due to the symptoms and problems resulting from the patient's mental illness and the failure to treat the patient at the partial hospital level of care would likely result in the patient requiring inpatient psychiatric care which could not be prevented at a less intensive level of care. I spent minutes with the patient and/or on the patient floor today, greater than?50% of which was spent counseling/coordinating care. Discharge Plan Discharge Attending provider: Sarbjit Barrios Medications: New citalopram 20 mg tablet 20 mg PO DAILY 30 Days Qty: 30 0RF No Action lithium carbonate 150 mg Capsule 150 mg PO BEDTIME Rx Instructions: Take with 450 mg tab at HS for a total daily dose of 1050 mg. melatonin 3 mg Tablet 6 mg PO BEDTIME Rx Instructions: Take 1-3 tabs at Bedtime. Latuda 120 mg Tablet 120 mg PO DAILY Rx Instructions: must administer with food (at least 350 calories) cholecalciferol (vitamin D3) 50 mcg (2,000 unit) tablet 50 mcg PO DAILY loratadine 10 mg tablet 10 mg PO DAILY omeprazole 20 mg capsule,delayed release(DR/EC) 40 mg PO DAILY Label Comments: Patient stated she missed a few days as she ran out. Stated the pharmacy told her it is ready for p/u today. lithium carbonate 450 mg tablet extended release 450 mg PO BID lorazepam 0.5 mg tablet 0.5 mg PO DAILY PRN (Reason: Anxiety) Label Comments: Patient stated last dose few days ago. sumatriptan succinate 50 mg tablet 50 mg PO DAILY PRN (Reason: Migraine Headache) Rx Instructions: Last filled 07/14/21 for 9 tabs. clonidine HCl 0.1 mg tablet 0.2 mg PO BEDTIME Label Comments: Patient takes 2 tabs at HS. Rx Instructions: 1/2 to 1 tab BID Telehealth Telehealth Location of provider rendering services: practice address Location of patient: address on file Patient Identification confirmed using: Name, : Yes Telehealth method: video Patient verbally consented to treatment: Yes Patient verbally consented to billing insurance company: Yes Patient informed of any privacy concerns related to visit: Yes Minutes spent on Phone/Video with Pt.: 15
--- NOTE | 2021-11-06 10:52 | HO.PHPPROGNO ---
Subjective Subjective Date of Service: 11/06/21 Reason For Visit: bipolar Medical Problems Affecting Mental Status: No Interim History: States ?I am doing okay ?. Denies SI, states ?those thoughts have gone ?. Medication Compliance: Yes Side effects from medications: No Attending Groups: Yes Review of Systems Acute medical concerns: No Medical Review of Systems: unchanged Review of Systems Review of Systems Yes all other systems are reviewed and are negative Constitutional: Reports no additional constitutional complaints Mental Status Exam Mental Status Exam Narrative: NAD. Mood: I'm doing okay . Denies SI/HI/AH/VH, no safety concern. Denies any mood lability since starting citalopram. Patient Appearance: Well Grooomed and Appropriate Patient Orientation: Person, Place, Time and Situation Level of Consciousness: Appropriate Patient Behavior: Appropriate, Cooperative and Good Eye Contact Mood Description: Appropriate Affect Description: Appropriate Patient Cognition Impaired: No Ability to Follow Directions: Excellent Speech Pattern: Clear, Appropriate and Coherent Memory Description: Intact Hallucinations: None Delusions: Not Present Thought Process: Intact Thought Content: positive for Intact Depressive Symptoms: Changes in Appetite (reduced) Judgement: Good Diagnostics Vital Signs (24Hr): BMI result Body Mass Index 27.4 Assessment & Plan Assessment & Plan (1) Bipolar 2 disorder, major depressive episode: Status: Acute Code(s): F31.81 - Bipolar II disorder Assessment and Plan: Reports feeling much improved. Reports no mood lability with added citalopram. Overall stable. Denies any thought of harm to self or others, reports that any suicidal ideation has ceased, and that she feels safe. Fell asleep last night while watching television, then took bedtime meds early this morning. We discussed this, she did hold her morning meds until several minutes ago at 1045am. Discussed adding alarm to smart phone as a medication reminder for evening meds, and other methods. (2) Chronic post-traumatic stress disorder (PTSD): Status: Acute Code(s): F43.12 - Post-traumatic stress disorder, chronic Assessment and Plan: No overt symptoms of PTSD at this time. Plan 1. Patient to continue current medication regimen. 2. Appears stable from [facility] at this time. 3. Patient to follow-up with outpatient provider going forward. Patient educated on: diagnosis, medication risk/benefits and therapeutic strategies Informed Consent: understands Reason for contiued partial hosp. stay Substantial Risk for: stable for discharge Certification I certify that partial hospital treatment is medically necessary due to the symptoms and problems resulting from the patient's mental illness and the failure to treat the patient at the partial hospital level of care would likely result in the patient requiring inpatient psychiatric care which could not be prevented at a less intensive level of care. I spent minutes with the patient and/or on the patient floor today, greater than?50% of which was spent counseling/coordinating care. Discharge Plan Discharge Attending provider: Sarbjit Barrios Medications: New citalopram 20 mg tablet 20 mg PO DAILY 30 Days Qty: 30 0RF No Action lithium carbonate 150 mg Capsule 150 mg PO BEDTIME Rx Instructions: Take with 450 mg tab at HS for a total daily dose of 1050 mg. melatonin 3 mg Tablet 6 mg PO BEDTIME Rx Instructions: Take 1-3 tabs at Bedtime. Latuda 120 mg Tablet 120 mg PO DAILY Rx Instructions: must administer with food (at least 350 calories) cholecalciferol (vitamin D3) 50 mcg (2,000 unit) tablet 50 mcg PO DAILY loratadine 10 mg tablet 10 mg PO DAILY omeprazole 20 mg capsule,delayed release(DR/EC) 40 mg PO DAILY Label Comments: Patient stated she missed a few days as she ran out. Stated the pharmacy told her it is ready for p/u today. lithium carbonate 450 mg tablet extended release 450 mg PO BID lorazepam 0.5 mg tablet 0.5 mg PO DAILY PRN (Reason: Anxiety) Label Comments: Patient stated last dose few days ago. sumatriptan succinate 50 mg tablet 50 mg PO DAILY PRN (Reason: Migraine Headache) Rx Instructions: Last filled 07/14/21 for 9 tabs. clonidine HCl 0.1 mg tablet 0.2 mg PO BEDTIME Label Comments: Patient takes 2 tabs at HS. Rx Instructions: 1/2 to 1 tab BID Stand Alone Forms: Patient Portal Discharge page Telehealth Telehealth Location of provider rendering services: practice address Location of patient: address on file Patient Identification confirmed using: Name, : Yes Telehealth method: video Patient verbally consented to treatment: Yes Patient verbally consented to billing insurance company: Yes Patient informed of any privacy concerns related to visit: Yes Minutes spent on Phone/Video with Pt.: 15
--- NOTE | 2021-11-06 12:27 | PC.NURSE ---
Patient scheduled to discharge from [facility] 11/06/21. Spoke to patient who reports she is feeling better, No SI. Reviewed patient medications with patient. Patient reports she is taking medications as prescribed. Medication education provided.
--- NOTE | 2021-11-06 16:16 | PC.NURSE ---
I called and left a message for pt's therapist, Gina Carter at [facility] informing her of pt's discharge from [facility] today, PHQ-9 score, and clinical presentation upon discharge.
== END 2021-11-06 23:59 | disposition home or self-care (01) ==
LOC: HO.PHPA 10:00
PROVIDERS: Visit Provider Psychiatry & Neurology Psychiatry
DX: F31.81 Bipolar II disorder (principal); F43.12 Post-traumatic stress disorder, chronic; Z79.899 Other long term (current) drug therapy
CPT/HCPCS: 90791; 90853

== ENCOUNTER 2022-04-04 20:25 | Emergency (ER) | payer MEDICAID, SELFPAY ==
[2022-04-04 20:36] VITALS: BP 156/79; BP 183/84; PULSE 57; PULSE 61; RESP 18; TEMP 36.9; O2SAT 100; BMI 27.4
--- NOTE | 2022-04-04 21:33 | ED_ITS ---
HPI - Headache General Chief Complaint: Headache Stated Complaint: headache Time Seen by Provider: 04/04/22 20:55 Source: patient Mode of arrival: EMS History of Present Illness HPI Narrative: 37-year-old female with history of migraines and has been on sumatriptan but she states that ?it no longer works?. Patient states that her primary care provider placed her on a 5 day course of prednison, but patient states that her headache that has been ongoing since 03/26 has persisted and spiked? and that it has improved with taking Tylenol but it does not last. Patient has had some photosensitivity with light nausea and an episode of vomiting that last occurred yesterday but denies any dizziness or weakness. Patient also denies any fever or chills and states that she has continued to have bowel movements and pass flatus and denies any urinary symptoms. Related Data Home Medications Medication Instructions Recorded Confirmed cholecalciferol (vitamin D3) 50 50 mcg PO DAILY 10/10/20 02/17/22 mcg (2,000 unit) tablet lithium carbonate 450 mg 450 mg PO BID 10/10/20 02/17/22 tablet,extended release loratadine 10 mg tablet 10 mg PO DAILY 10/10/20 02/17/22 lorazepam 0.5 mg tablet 0.5 mg PO DAILY PRN Anxiety 10/10/20 02/17/22 omeprazole 20 mg capsule,delayed 40 mg PO DAILY 10/10/20 02/17/22 release sumatriptan succinate 50 mg tablet 50 mg PO DAILY PRN Migraine 10/10/20 02/17/22 Headache lithium carbonate 150 mg capsule 150 mg PO BEDTIME 08/12/21 02/17/22 lurasidone 120 mg tablet (Latuda) 120 mg PO DAILY 08/12/21 02/17/22 melatonin 3 mg tablet 6 mg PO BEDTIME 08/12/21 02/17/22 clonidine HCl 0.1 mg tablet 0.2 mg PO BEDTIME Anxiety 10/08/21 02/17/22 doxycycline monohydrate 100 mg 100 mg PO DAILY 11/06/21 02/17/22 capsule Previous Rx's Medication Instructions Recorded citalopram 20 mg tablet 20 mg PO DAILY 30 days #30 tabs 11/02/21 [id number] 1 cap PO Q8H PRN pain #4 caps 04/05/22 50 mg-300 mg-40 mg capsule (Fioricet) Allergies Allergy/AdvReac Type Severity Reaction Status Date / Time oxcarbazepine Allergy Intermediate Rash Verified 05/29/21 11:15 [From TRILEPTAL] acetaminophen [From VICODIN] Allergy Unknown UNKNOWN Verified 05/29/21 11:15 bee pollen [BEE STINGS] Allergy Unknown unknown Verified 05/29/21 11:15 hydrocodone [From VICODIN] Allergy Unknown UNKNOWN Verified 05/29/21 11:15 lamotrigine [LAMOTRIGINE] Allergy Unknown RASH Verified 05/29/21 11:15 morphine [MORPHINE] Allergy Unknown ANAPHYLAXIS Verified 05/29/21 11:15 ziprasidone [From GEODON] AdvReac Intermediate facial/mouth Verified 05/29/21 11:15 numbness, pt reports feeling high when using trazodone AdvReac Fainting Verified 08/12/21 12:31 Review of Systems Review of Systems: Pertinent positives and negatives as stated in HPI 10 point review of systems is otherwise negative. REPLACED BY [facility] Past Medical History Source: nursing notes reviewed Medical History History of stroke Surgical History History of back surgery History of tonsillectomy and adenoidectomy Hx of abdominal surgery Hx of heart surgery Hx of tubal ligation Family History Family History Mother Heart disease Thyroid condition Father Hypertension Brother No problems noted. Sister No problems noted. Son No problems noted. Daughter No problems noted. Daughter No problems noted. Daughter No problems noted. Social History Social History Household Members: None Alcohol intake: current Alcohol intake frequency: holidays/special occasions only Patient Tobacco Use Status: Never used Tobacco Advance Directives: No Advance Directives Information Provided: No Physical Exam Vital Signs: Vital Signs: Last Vital Signs Temp 98.6 F 04/04/22 23:12 Pulse 96 04/04/22 23:12 Resp 18 04/04/22 23:12 BP 130/69 04/04/22 23:12 Pulse Ox 98 04/04/22 23:12 O2 Del Method 11/13/22 23:12 BMI result Body Mass Index 27.4 VITAL SIGNS: Reviewed. GENERAL: Well developed, well nourished, in no acute distress. HEAD: Normocephalic/atraumatic EYES: PERRLA, EOMI EARS: Ext canals without abnormality OROPHARYNX: no oral lesions noted, posterior pharynx clear LUNGS: Normal breath sounds. No adventitious sounds or accessory muscle use. SpO2<100> CARDIOVASCULAR: Regular rate and rhythm without noted murmurs ABDOMEN: Soft, non-tender, non-distended with bowel sounds. MUSCULOSKELETAL: No tenderness, deformities, or effusions noted on gross inspection. EXTREMITIES: No cyanosis, clubbing or edema. SKIN: Inspection of the skin reveals no rashes NEUROLOGIC: Alert and oriented x 4. Strength and sensation to light touch were grossly intact x 4, no facial asymmetry, no pronator drift, cranial nerves 2-12 are grossly intact Course Course Course Narrative: 37-year-old female with history and clinical presentation consistent with migraine and no evidence to suggest neuro/focal deficits. Will proceed with Tylenol/Toradol/1 L of IV fluids and reassess. Review of all investigations without acute findings on reassessment patient reports that she is feeling mildly improved and understands that she will be provided with a referral to follow-up with neurology for outpatient management of her migraines. Medications Administered Discontinued Medications Generic Name Dose Route Start Last Admin Trade Name Michi PRN Reason Stop Dose Admin Acetaminophen 975 mg 04/04/22 21:30 04/04/22 21:44 Acetaminophen 325 Mg Tablet PO 04/04/22 21:31 975 mg ONCE ONE Administration Sodium Chloride 1,000 mls @ 999 mls/hr 04/04/22 21:30 04/04/22 21:53 Ns IV 04/04/22 22:30 999 mls/hr .Q1H1M SADIA Administration Ketorolac Tromethamine 15 mg 04/04/22 21:30 04/04/22 21:53 Ketorolac Tromethamine 30 Mg/Ml Vial IVPUSH 04/04/22 21:31 15 mg ONCE ONE Administration MDM - Headache Lab Data Labs: Lab Results 04/04/22 04/04/22 04/04/22 Range/Units 21:16 23:04 23:04 Urine Color Yellow Urine Appearance Clear Urine pH 7.0 (5.0-9.0) Ur Specific [place] 1.010 (1.005-1.025) Urine Protein Trace (Neg-Trace) mg/dL Urine Glucose (UA) Negative (Negative) mg/dL Urine Ketones Negative (Negative) mg/dL Urine Blood Negative (Negative) Urine Nitrite Negative (Negative) Ur Leukocyte Esterase Negative (Negative) Urine Test NEGATIVE (NEGATIVE) Influenza Type A (PCR) NEGATIVE (Negative) Influenza Type B (PCR) NEGATIVE (Negative) RSV RNA Qual (PCR) NEGATIVE (Negative) SARS-CoV-2 RNA (RT-PCR) NEGATIVE (Negative) Discharge Plan Discharge Clinical Impression: Headache, migraine Patient Disposition: Home, Self-Care Instructions: Migraine Headache (ED) Additional Instructions: 1. Resume all home medications as prescribed. 2. You have been provided with a referral to follow-up with neurology for outpatient management of your migraines. 3. Follow-up with your primary care provider for re-evaluation as well. Return to the ER for worsening symptoms. Prescriptions: New [id number]-qxsktstjhcnxj-hvue [Fioricet] 50-300-40 mg capsule 1 cap PO Q8H PRN (Reason: pain) Qty: 4 0RF No Action citalopram 20 mg tablet 20 mg PO DAILY 30 Days Qty: 30 0RF doxycycline monohydrate 100 mg Capsule 100 mg PO DAILY Label Comments: Patient stated she takes 100 mg daily for acne. lithium carbonate 150 mg Capsule 150 mg PO BEDTIME Rx Instructions: Take with 450 mg tab at HS for a total daily dose of 1050 mg. melatonin 3 mg Tablet 6 mg PO BEDTIME Rx Instructions: Take 1-3 tabs at Bedtime. Latuda 120 mg Tablet 120 mg PO DAILY Rx Instructions: must administer with food (at least 350 calories) cholecalciferol (vitamin D3) 50 mcg (2,000 unit) tablet 50 mcg PO DAILY loratadine 10 mg tablet 10 mg PO DAILY omeprazole 20 mg capsule,delayed release(DR/EC) 40 mg PO DAILY Label Comments: Patient stated she missed a few days as she ran out. Stated the pharmacy told her it is ready for p/u today. lithium carbonate 450 mg tablet extended release 450 mg PO BID lorazepam 0.5 mg tablet 0.5 mg PO DAILY PRN (Reason: Anxiety) Label Comments: Patient stated last dose few days ago. sumatriptan succinate 50 mg tablet 50 mg PO DAILY PRN (Reason: Migraine Headache) Rx Instructions: Last filled 2/22/22 for 9 tabs. clonidine HCl 0.1 mg tablet 0.2 mg PO BEDTIME Label Comments: Patient takes 2 tabs at HS. Referrals: Ayla Ferrer NP [Primary Care Provider] - Grupo Vega MD [Physician] - (Migraines sumatriptan not working. )
[2022-04-04] MEDS: Acetaminophen 325 MG TABLET 975 MG PO (21:44)
[2022-04-04] MEDS: 0.9 % Sodium Chloride 1,000 ML 999 ML IV (21:53)
[2022-04-04] MEDS: Ketorolac Tromethamine 30 MG/ML VIAL 15 MG IVPUSH (21:53)
[2022-04-04 22:04] LABS: Influenza A PCR NEGATIVE (Negative); Influenza B PCR NEGATIVE (Negative); Resp Syncy Virus RNA Qual PCR NEGATIVE (Negative); SARS COV2 PCR INHOUSE NEGATIVE (Negative)
--- NOTE | 2022-04-04 23:04 | PC.NURSE ---
Pt. up to use restroom. Pt. ambulated to bathroom with steady gait. Still c/o headache, however, it has eased up a bit with the medication.
[2022-04-04 23:12] VITALS: BP 130/69; PULSE 96; RESP 18; TEMP 37; O2SAT 98
[2022-04-04 23:12] LABS: Appearance Urine Clear; Color Urine Yellow; Glucose Urine UA Negative (Negative); Leukocyte Esterase Urine Negative (Negative); Nitrite Urine Negative (Negative); UPreg QC Valid YES; Urine Blood Negative (Negative); Urine Ketones Negative (Negative); Urine Pregnancy NEGATIVE (NEGATIVE); Urine Protein Trace mg/dL (Neg-Trace)
[2022-04-05] MEDS: Butalb/Acetamin/Caff 50/325/40 TABLET 1 TAB PO (00:50)
== END 2022-04-05 01:04 | disposition home or self-care (01) ==
PROVIDERS: Emergency Provider Student in an Organized Health Care Education/Training Program; PCP Nurse Practitioner Family
DX: G43.909 Migraine, unspecified, not intractable, without status migrainosus (principal); Z20.822 Contact with and (suspected) exposure to COVID-19; Z79.899 Other long term (current) drug therapy
CPT/HCPCS: 0241U; 81003; 81025; 96361; 96374; 99284; J1885

== ENCOUNTER → 2023-01-04 08:00 | Outpatient (BNV) | payer OTHER, SELFPAY | PROVIDERS: Visit Provider Psychiatry & Neurology Psychiatry | DX: F31.81 Bipolar II disorder (principal) | CPT/HCPCS: 99202 ==

== ENCOUNTER 2023-01-20 08:00 | Outpatient (RCR) | payer OTHER, SELFPAY ==
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
[2023-01-04 11:50] VITALS: BP 127/86; PULSE 62; TEMP 36.5
[2023-01-04 11:53] VITALS: BMI 31.1
--- NOTE | 2023-01-04 14:20 | PC.ADMIT ---
Addendum entered by Brittney Dow RN 01/04/23 14:40: Patient reports she stopped taking Lorazepam 6 months ago. Original Note: Patient is a 37 year old female who self referred to [facility] d/t increased sxs of depression and anxiety for several months. Patient reports she has been to [facility] in the past and has found it helpful. She holds a dx of Bipolar I disorder with most recent episode of depression. Per Integrative Assessment patient reports stressors including custody issues with her four children who her ex has sole custody and struggling to accept her disability and the inability to work as a result. Patient is alert and oriented x4. Calm and cooperative. Denied SI at present. Presented with depressed mood and anxious affect. She stated she is at [facility] because, I called and came because I was having a lot of suicidal ideation and afraid that I would act on it . Medication change was helpful to decrease SI Patient reports she continues to struggle with depression. I'm having depression. I usually shower twice a day and now showering every couple days. I don't want to do anything, I want to sit in my home and do nothing . Medication reconciled with patient and patient's pharmacy. She reports taking medications as prescribed. Stated her Latuda was recently increased to 120 mg daily.
--- NOTE | 2023-01-06 16:00 | HO.PHP ---
The clients case was reviewed and opened in treatment team.
== END 2023-01-20 23:59 | disposition home or self-care (01) ==
LOC: HO.PHPA 08:00
PROVIDERS: Visit Provider Psychiatry & Neurology Psychiatry
DX: F31.81 Bipolar II disorder (principal)
CPT/HCPCS: 90791; 90853

== ENCOUNTER 2023-02-15 11:39 | Outpatient (RCR) | payer OTHER, SELFPAY | END 2023-02-15 23:59 | disposition home or self-care (01) | LOC: HO.PHPA 11:39 | PROVIDERS: Visit Provider Psychiatry & Neurology Psychiatry | DX: F31.32 Bipolar disorder, current episode depressed, moderate (principal); F41.1 Generalized anxiety disorder; F43.10 Post-traumatic stress disorder, unspecified | CPT/HCPCS: 90791 ==

== ENCOUNTER → 2023-02-24 11:45 | Outpatient (BNV) | payer OTHER, SELFPAY | PROVIDERS: Visit Provider Psychiatry & Neurology Psychiatry | DX: F43.12 Post-traumatic stress disorder, chronic (principal); F31.81 Bipolar II disorder | CPT/HCPCS: 99212; 99213; 99214 ==

== ENCOUNTER 2023-03-11 10:30 | Outpatient (RCR) | payer OTHER, SELFPAY ==
[2023-02-24 10:50] VITALS: BP 120/70; PULSE 76; TEMP 37.3
[2023-02-24 10:53] VITALS: BMI 30.7
--- NOTE | 2023-02-24 11:32 | PC.ADMIT ---
Patient is a 38 year old female who has a dx of Bipolar d/o and PTSD who self presented back to [facility] d/t increased depression and anxiety sxs. Reports passive SI, denied plan or intent to kill herself. Her children are her protective factor. Reports she is eating and sleeping too much and that she has difficulty with her personal hygiene and taking care of her home. Patient's boyfriend recently went to long-term. Concerned her ex who has primary custody of their children will take her back to court and challenge custody. Patient initially had a [facility] intake assessment completed in January 2023 and was supposed to start PHP the next day however she was unable to attend at that time d/t feeling sick and testing positive for Covid. Patient is alert and oriented x4. Presented with depressed mood and affect. She was given a copy of her safety plan if needed and I reviewed this with her. Medications reconciled with patient and patient's pharmacy. She reports taking medications as prescribed.
--- NOTE | 2023-02-24 17:06 | HO.PHP ---
Clients case was reviewed and opened today in treatment team.
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
--- NOTE | 2023-03-02 10:27 | HO.PHPPROGNO ---
Subjective Subjective Date of Service: 03/02/23 Reason For Visit: bipolar Interim History: As per PHP H and P 02/25/23: 38-year-old white, , mother of 4 who live with her father. Kim carries diagnosis of bipolar disorder. This is her 4th partial hospital engagement. She was here last in December. She has history of depression, suicidal ideations, preoccupations and the reason she came back she actually had a plan of taking Ativan which she has stock piled but decided to get rid of them and come back to the partial program. She her rub boyfriend was recently put in alf for 90 days for aggravated assault but not towards her. She does struggle with depression, hopelessness, poor appetite and disturbed sleep. Current medication include lithium carbonate 1050 mg, Latuda 120 mg, clonidine 0.2 mg q.h.s., Celexa 30 mg daily and Ativan p.r.n. which she is not taking. No current or recent history of substance abuse. Some alcohol abuse many years ago. She denies any side effects. She is connected to be a chin and has a therapist and a prescriber. . No changes were made Today: Overall reports that things are going well and finding the program good. Feels that the structure and scheduling is very helpful for her sleep schedule. Also feels that she is learning coping skills and distraction from stressors which include email interaction with her ex- and also anxiety regarding her boyfriend who is in alf for 90 days. Misses him and hopeful he can be released sooner than 90 days based off good behavior and other criteria etc. Mood is brighter overall and less anxious. Reports that she is more hopeful and less suicidal thought was 2 to 3 days ago. No psychosis. No agitation. No medication concerns. Medication Compliance: Yes Side effects from medications: No Attending Groups: Yes Review of Systems Acute medical concerns: No Mental Status Exam Mental Status Exam Narrative: Pleasant. Engaged. Organized. Euthymic. No SI. No HI. No agitation. No psychosis. Insight and judgment fair Diagnostics Vital Signs (24Hr): BMI result Body Mass Index 30.7 Assessment & Plan Assessment & Plan (1) Chronic post-traumatic stress disorder (PTSD): Status: Acute Code(s): F43.12 - Post-traumatic stress disorder, chronic (2) Bipolar 2 disorder, major depressive episode: Status: Acute Code(s): F31.81 - Bipolar II disorder Plan Overall appears to be benefiting from current medication regimen and partial hospital programming. No med changes indicated. Mood is gradually improving. Does not require further psychiatry follow-up during partial hospital program unless staff or patient request same. Patient in agreement with the evaluation and treatment plan. Patient educated on: therapeutic strategies Informed Consent: understands Reason for contiued partial hosp. stay Substantial Risk for: med/psych decompensation Certification I certify that partial hospital treatment is medically necessary due to the symptoms and problems resulting from the patient's mental illness and the failure to treat the patient at the partial hospital level of care would likely result in the patient requiring inpatient psychiatric care which could not be prevented at a less intensive level of care. Total time managing care of this patient today ____ minutes. Discharge Plan Discharge Attending provider: Sarbjit Barrios Medications: No Action doxycycline monohydrate 100 mg Capsule 100 mg PO DAILY Patient Comments: Patient stated she takes 100 mg daily for acne. lithium carbonate 150 mg Capsule 150 mg PO BEDTIME Rx Instructions: Take with 450 mg tab at HS for a total daily dose of 1050 mg. lurasidone [Latuda] 120 mg Tablet 120 mg PO DAILY Rx Instructions: must administer with food (at least 350 calories) clonidine HCl 0.1 mg tablet 0.05 - 0.1 mg PO BID PRN (Reason: insomnia) citalopram 10 mg tablet 10 mg PO DAILY Rx Instructions: Take with 20 mg tab for a total of 30 mg daily. lorazepam 0.5 mg tablet 0.5 mg PO DAILY PRN (Reason: Anxiety) Patient Comments: Patient stated she has not needed in over a month. Takes prn. Rx Instructions: Last filled 12/02/22. cholecalciferol (vitamin D3) 50 mcg (2,000 unit) tablet 50 mcg PO DAILY loratadine 10 mg tablet 10 mg PO DAILY omeprazole 20 mg capsule,delayed release(DR/EC) 20 mg PO DAILY Patient Comments: Patient stated she takes 20 mg daily, OTC. lithium carbonate 450 mg tablet extended release 450 mg PO BID Telehealth Telehealth Location of provider rendering services: other ([place]) Location of patient: other (Partial hospital program) Telehealth method: video Minutes spent on Phone/Video with Pt.: 12
--- NOTE | 2023-03-07 12:50 | HO.PHP ---
[facility] staff provided support to Kim with contacting her OP therapist to request for an increase in services from once every three weeks to once a week. [facility] staff left a VM inquiring about this and is awaiting a phone call back at this time.
--- NOTE | 2023-03-10 09:24 | PC.NURSE ---
Kim did not show up to the program this morning. I called Kim and she stated she woke up late and is on her way to the program now. I reviewed the program rules with her that staff reviews every morning in community meeting. She will be at the program tomorrow. She stated she is safe, No SI.
--- NOTE | 2023-03-11 10:56 | P.PNPSP_ITS ---
Subjective Subjective Date of Service: 03/11/23 Reason For Visit: bipolar Interim History: I evaluated the patient this morning. Today is her last day in [facility]. Patient shares some anxiety about being discharged today. She feels she benefits a lot from the structure of the program, especially because she does not work on account of being on disability for being permanently disabled due to bipolar disorder. She acknowledges she has been discussing these concerns in the groups and has received some helpful advice and coping skills. She plans to continue this conversation with her therapist to see about developing daily routines to bring structure to her life. Mood is reportedly anxious, she denies any thoughts of harming herself or others. She has had no recent suicidal thoughts. No evidence of pete or psychosis. Intrusive thoughts they've gone away . Protective factors I think about my kids and notes having made a promise to her youngest child. Despite discharge she does look forward to having more time with family. She is also hopeful that her boyfriend will be able to apply for probation after 90 days. She reports he has legal issues due to allegations by his ex, but patient denies any issues with domestic violence or aggression in the home. He has a remote addiction history but has been clean for a long time. Mental Status Exam Mental Status Exam Narrative: Pleasant. Engaged. Organized. Mood anxious, affect reactive, appropriate. No SI. No HI. No agitation. No psychosis. Insight and judgment fair Diagnostics Vital Signs (24Hr): BMI result Body Mass Index 30.7 Assessment & Plan Assessment & Plan (1) Chronic post-traumatic stress disorder (PTSD): Status: Acute Code(s): F43.12 - Post-traumatic stress disorder, chronic (2) Bipolar 2 disorder, major depressive episode: Status: Acute Code(s): F31.81 - Bipolar II disorder Plan Discharge from [facility] today, follow up treatment with community providers Reviewed discharge instructions with patient, packet signed and given to patient Rx: refills sent to home pharmacy Primary supports: lives at home with children, partner recently incarcerated Certification I certify that partial hospital treatment is medically necessary due to the symptoms and problems resulting from the patient's mental illness and the failure to treat the patient at the partial hospital level of care would likely result in the patient requiring inpatient psychiatric care which could not be prevented at a less intensive level of care. Total time managing care of this patient today __30__ minutes. Discharge Plan Discharge Attending provider: Sarbjit Barrios Additional Instructions: Kim has an OP therapist, Gina Carter, through [facility], in which her next scheduled appointment is March 15, 2023 at 3 PM. Medications: Continued citalopram 10 mg tablet 10 mg PO DAILY Rx Instructions: Take with 20 mg tab for a total of 30 mg daily. lorazepam 0.5 mg tablet 0.5 mg PO DAILY PRN (Reason: Anxiety) 14 Days Qty: 14 0RF citalopram 20 mg tablet 20 mg PO DAILY 30 Days Qty: 30 0RF lithium carbonate 150 mg Capsule 150 mg PO BEDTIME 30 Days Qty: 30 0RF Rx Instructions: Take with 450 mg tab at HS for a total daily dose of 1050 mg. No Action doxycycline monohydrate 100 mg Capsule 100 mg PO DAILY Patient Comments: Patient stated she takes 100 mg daily for acne. lurasidone [Latuda] 120 mg Tablet 120 mg PO DAILY Rx Instructions: must administer with food (at least 350 calories) clonidine HCl 0.1 mg tablet 0.05 - 0.1 mg PO BID PRN (Reason: insomnia) cholecalciferol (vitamin D3) 50 mcg (2,000 unit) tablet 50 mcg PO DAILY loratadine 10 mg tablet 10 mg PO DAILY omeprazole 20 mg capsule,delayed release(DR/EC) 20 mg PO DAILY Patient Comments: Patient stated she takes 20 mg daily, OTC. lithium carbonate 450 mg tablet extended release 450 mg PO BID Stand Alone Forms: Patient Portal Discharge page Patient Education: Bipolar Disorder (DC)
--- NOTE | 2023-03-11 18:15 | HO.PHP ---
[facility] staff member contacted Kim's OP therapist, Gina Mccall and left a VM stating she discharged from services. [facility] staff member stated that Kim would like to increase her services with the OP therapist to once a week and is hoping she is able to further discuss this when they next meet. [facility] staff disclosed if she has any further questions to reach out.
== END 2023-03-11 23:59 | disposition home or self-care (01) ==
LOC: HO.PHPA 10:30
PROVIDERS: Visit Provider Psychiatry & Neurology Psychiatry
DX: F31.81 Bipolar II disorder (principal); F43.12 Post-traumatic stress disorder, chronic; Z79.899 Other long term (current) drug therapy
CPT/HCPCS: 90791; 90853